=== PATIENT | female | born 1985 | race American Indian/Alaskan Native ===

== ENCOUNTER 2017-10-08 17:23 | Emergency (ER) | payer BC ==
--- NOTE | 2017-10-08 17:35 | EDM.PDOC ---
ED HPI GENERAL MEDICAL PROBLEM - General Chief Complaint: General Stated Complaint: FLU Time Seen by Provider: 10/08/17 17:35 Source of Information: Reports: Patient - History of Present Illness INITIAL COMMENTS - FREE TEXT/NARRATIVE: HISTORY AND PHYSICAL: History of present illness: [Patient presents with fever cough for 24 hours with known flu exposure No nausea vomiting chills sweats no chest pain shortness breath headache dizziness palpitation about a urine symptoms ] Review of systems: As per history of present illness and below otherwise all systems reviewed and negative. Past medical history: As per history of present illness and as reviewed below otherwise noncontributory. Surgical history: As per history of present illness and as reviewed below otherwise noncontributory. Social history: No reported history of drug or alcohol abuse. Family history: As per history of present illness and as reviewed below otherwise noncontributory. Physical exam: HEENT: Atraumatic, normocephalic, pupils reactive, negative for conjunctival pallor or scleral icterus, mucous membranes moist, throat clear, neck supple, nontender, trachea midline. Lungs: Clear to auscultation, breath sounds equal bilaterally, chest nontender. Heart: S1S2, regular, negative for clicks, rubs, or JVD. Abdomen: Soft, nondistended, nontender. Negative for masses or hepatosplenomegaly. Negative for costovertebral tenderness. Pelvis: Stable nontender. Genitourinary: Deferred. Rectal: Deferred. Extremities: Atraumatic, negative for cords or calf pain. Neurovascular unremarkable. Neuro: Awake, alert, oriented. Cranial nerves II through XII unremarkable. Cerebellum unremarkable. Motor and sensory unremarkable throughout. Exam nonfocal. Diagnostics: [Influenza] Therapeutics: [Tamiflu Phenergan with codeine ] Impression: [Influenza] Definitive disposition and diagnosis as appropriate pending reevaluation and review of above. - Related Data Allergies Allergy/AdvReac Type Severity Reaction Status Date / Time No Known Allergies Allergy Verified 10/08/17 17:42 Home Meds: Home Meds . [No Known Home Meds] 10/08/17 [History] ED ROS GENERAL - Review of Systems Review Of Systems: ROS reveals no pertinent complaints other than HPI. ED EXAM, GENERAL - Physical Exam Exam: See Below Course - Vital Signs Last Recorded V/S: Last Vital Signs Temp 97.3 F 10/08/17 17:42 Pulse 84 10/08/17 17:42 Resp 18 10/08/17 17:42 BP 109/63 10/08/17 17:42 Pulse Ox 98 10/08/17 17:42 Departure - Departure Time of Disposition: 18:37 Disposition: Home, Self-Care 01 Condition: Good Clinical Impression: Influenza - Discharge Information Referrals: PCP,None [Primary Care Provider] - Forms: ED Department Discharge Additional Instructions: The following information is given to patients seen in the emergency department who are being discharged to home. This information is to outline your options for follow-up care. We provide all patients seen in our emergency department with a follow-up referral. The need for follow-up, as well as the timing and circumstances, are variable depending upon the specifics of your emergency department visit. If you don't have a primary care physician on staff, we will provide you with a referral. We always advise you to contact your personal physician following an emergency department visit to inform them of the circumstance of the visit and for follow-up with them and/or the need for any referrals to a consulting specialist. The emergency department will also refer you to a specialist when appropriate. This referral assures that you have the opportunity for follow-up care with a specialist. All of these measure are taken in an effort to provide you with optimal care, which includes your follow-up. Under all circumstances we always encourage you to contact your private physician who remains a resource for coordinating your care. When calling for follow-up care, please make the office aware that this follow-up is from your recent emergency room visit. If for any reason you are refused follow-up, please contact the [facility] emergency department at and asked to speak to the emergency department charge nurse.
== END 2017-10-08 18:48 | disposition home or self-care (01) ==
LOC: MW.ED 17:23
DX: J11.1 Influenza due to unidentified influenza virus with other respiratory manifestations (principal)
CPT/HCPCS: 87804; 99283

== ENCOUNTER 2019-05-24 05:26 | Inpatient (IN) | payer BC ==
[2019-05-24] MEDS ORDERED: Sodium Chloride 0.9% 10 ML SDV IV PRN (05:31)
[2019-05-24] MEDS ORDERED: Sodium Chloride 0.9% 2.5 ML Syringe FLUSH PRN (05:31)
[2019-05-24] MEDS ORDERED: Citric Acid/Sodium Citrate Solution 30 ML Cup PO ONE (05:31)
[2019-05-24] MEDS ORDERED: Sodium Chloride 0.9% 10 ML Syringe FLUSH PRN (05:31)
[2019-05-24] MEDS ORDERED: ceFAZolin 2 GM in Premix Bag 1 BAG IV ONE (05:31)
[2019-05-24] MEDS: Lactated Ringers 1,000 ML IV SCH ×2 (05:45→07:23)
[2019-05-24] MEDS ORDERED: Oxytocin/0.9 % Sodium Chloride 30 UNIT/500 ML BAG IV SCH (05:45)
--- NOTE | 2019-05-24 06:52 | PCM.PREANE ---
Preanesthetic Assessment - Anesthesia/Transfusion/Family Hx Anesthesia History: Prior Anesthesia Without Reaction Family History of Anesthesia Reaction: No Transfusion History: No Prior Transfusion(s) Intubation History: Unknown - Review of Systems General: No Symptoms Pulmonary: No Symptoms Cardiovascular: No Symptoms Gastrointestinal: No Symptoms Neurological: No Symptoms Other: Reports: None - Physical Assessment Height: 5 ft 4 in Weight: 86.183 kg ASA Class: 2 Mental Status: Alert & Oriented x3 Airway Class: Mallampati = 2 Dentition: Reports: Normal Dentition Thyro-Mental Finger Breadths: 3 Mouth Opening Finger Breadths: 3 ROM/Head Extension: Full Lungs: Clear to Auscultation, Normal Respiratory Effort Cardiovascular: Regular Rate, Regular Rhythm - Lab Values: Laboratory Last Values WBC 8.91 K/uL (4.0-11.0) 05/24/19 05:44 RBC 4.04 M/uL (4.30-5.90) L 05/24/19 05:44 Hgb 12.5 g/dL (12.0-16.0) 05/24/19 05:44 Hct 36.7 % (36.0-46.0) 05/24/19 05:44 MCV 90.8 fL (80.0-98.0) 05/24/19 05:44 MCH 30.9 pg (27.0-32.0) 05/24/19 05:44 MCHC 34.1 g/dL (31.0-37.0) 05/24/19 05:44 RDW Std Deviation 44.5 fl (28.0-62.0) 05/24/19 05:44 RDW Coeff of Joss 14 % (11.0-15.0) 05/24/19 05:44 Plt Count 190 K/uL (150-400) 05/24/19 05:44 MPV 10.30 fL (7.40-12.00) 05/24/19 05:44 Nucleated RBC % 0.0 /100WBC 05/24/19 05:44 Nucleated RBCs # 0 K/uL 05/24/19 05:44 - Allergies Allergies/Adverse Reactions: Allergies Allergy/AdvReac Type Severity Reaction Status Date / Time codeine Allergy Nausea Verified 05/24/19 05:31 - Blood Blood Available: No - Anesthesia Plan Pre-Op Medication Ordered: None - Acknowledgements Anesthesia Type Planned: Spinal (general anesthesia back-up plan) Pt an Appropriate Candidate for the Planned Anesthesia: Yes Alternatives and Risks of Anesthesia Discussed w Pt/Guardian: Yes Pt/Guardian Understands and Agrees with Anesthesia Plan: Yes PreAnesthesia Questionnaire - Past Health History Medical/Surgical History: Denies Medical/Surgical History HEENT History: Reports: Other (See Below) Other HEENT History: wears glasses Cardiovascular History: Reports: None Respiratory History: Reports: None Gastrointestinal History: Reports: Other (See Below) Other Gastrointestinal History: heartburn with Genitourinary History: Reports: STD, UTI, Recurrent Other Genitourinary History: Herpes in February 2019, UTI once or twice a year. INVESTMENT OFFICER History: Reports: Musculoskeletal History: Reports: None Neurological History: Reports: None Psychiatric History: Reports: None Endocrine/Metabolic History: Reports: None Hematologic History: Reports: None Immunologic History: Reports: None Oncologic (Cancer) History: Reports: None Dermatologic History: Reports: Other (See Below) Other Dermatologic History: hx MRSA from spider bite, unsure if cleared (2005). - Infectious Disease History Infectious Disease History: Reports: Chicken Pox, Herpes, Influenza, MRSA - Past Surgical History Head Surgeries/Procedures: Reports: None HEENT Surgical History: Reports: Oral Surgery Other HEENT Surgeries/Procedures: [place] teeth Cardiovascular Surgical History: Reports: None Respiratory Surgical History: Reports: None GI Surgical History: Reports: None Female Surgical History: Reports: Section Endocrine Surgical History: Reports: None Neurological Surgical History: Reports: None Musculoskeletal Surgical History: Reports: None Oncologic Surgical History: Reports: None Dermatological Surgical History: Reports: None - SUBSTANCE USE Smoking Status *Q: Current Some Day Smoker Tobacco Use Within Last Twelve Months: Cigarettes Second Hand Smoke Exposure: Yes Recreational Drug Use History: No - HOME MEDS Home Medications: Home Meds PNV95/Ferrous Fumarate/FA [ Vitamin Tablet] 1 tab PO DAILY 05/20/19 [ History] - CURRENT (IN HOUSE) MEDS Current Meds: Current Medications Lactated Ringer's (Ringers, Lactated) 1,000 mls @ 500 mls/hr IV BOLUS RAVINDER Last Admin: 05/24/19 05:45 Dose: 500 mls/hr Oxytocin/Sodium Chloride (Oxytocin 30 Unit/500 Ml-Ns) 30 unit in 500 mls @ 250 mls/hr IV TITRATE RAVINDER Sodium Chloride (Saline Flush) 10 ml FLUSH ASDIRECTED PRN PRN Reason: Keep Vein Open Sodium Chloride (Saline Flush) 2.5 ml FLUSH ASDIRECTED PRN PRN Reason: Keep Vein Open Sodium Chloride (Normal Saline) 10 ml IV ASDIRECTED PRN PRN Reason: IV Use Discontinued Medications Citric Acid/Sodium Citrate (Bicitra Solution) 30 ml PO ONETIME ONE Stop: 05/24/19 05:32 Cefazolin Sodium/Dextrose 2 gm (/ Premix) 50 mls @ 100 mls/hr IV ONETIME ONE Stop: 05/24/19 06:00
[2019-05-24] MEDS ORDERED: Morphine PF 10 MG/10 ML SDV ONE (07:22)
[2019-05-24] MEDS ORDERED: Ondansetron 4 MG/2 ML SDV ONE (07:22)
[2019-05-24] MEDS ORDERED: Oxytocin 10 Units/1 ML SDV ONE (07:23)
[2019-05-24] MEDS ORDERED: Octyl 2-Cyanoacrylate 1 Tube ONE (07:33)
[2019-05-24] MEDS ORDERED: ceFAZolin/Dextrose,Iso-Osmotic 2 GM/50 ML Duplex Bag IV ONE (08:03)
[2019-05-24] MEDS ORDERED: Phenylephrine/Normal Saline 100 MCG/ML 10 ML Syringe ONE (08:06)
[2019-05-24] MEDS ORDERED: ePHEDrine 50 MG/ML SDV ONE (08:06)
[2019-05-24] MEDS ORDERED: Sodium Chloride 0.9% 20 ML ONE (08:07)
[2019-05-24] MEDS ORDERED: Ketorolac 30 MG/ML SDV ONE ×2 (08:30→09:02)
[2019-05-24] MEDS ORDERED: diphenhydrAMINE 50 MG/ML SDV IVPUSH PRN (09:39)
[2019-05-24] MEDS ORDERED: Ondansetron 4 MG/2 ML SDV IVPUSH PRN (09:39)
[2019-05-24] MEDS ORDERED: Acetaminophen/oxyCODONE 325-5 MG Tab PO PRN (09:39)
[2019-05-24] MEDS ORDERED: Bisacodyl 10 MG Supp RECTAL PRN (09:39)
[2019-05-24] MEDS ORDERED: Lanolin 100% Cream 7 GM Tube TOP PRN (09:39)
[2019-05-24] MEDS ORDERED: Lactated Ringers 1,000 ML IV SCH (09:45)
[2019-05-24] MEDS ORDERED: Ketorolac 30 MG/ML SDV IVPUSH SCH (09:45)
--- NOTE | 2019-05-24 09:58 | PCM.OPNOTE ---
- General Post-Op/Procedure Note Date of Surgery/Procedure: 05/24/19 Operative Procedure(s): Repeat Lower transverse Pre Op Diagnosis: 33 yo @ 39w1d for previous csection Post-Op Diagnosis: same Anesthesia Technique: Spinal Primary Surgeon: Scott Steve Fluid Replacement, Intraop: 1,800 Output, Urine Amount: 300 EBL in mLs: 500 Complications: Live female delivered at 822am , 8/9 weight 3710g Condition: Good Free Text/Narrative:: Intake & Output 05/23/19 05/24/19 05/24/19 22:59 06:59 14:59 Intake Total 1900 Balance 1900
--- NOTE | 2019-05-24 10:04 | PCM.POSTAN ---
POST ANESTHESIA ASSESSMENT - MENTAL STATUS Mental Status: Alert, Oriented - VITAL SIGNS Vital Signs: Last Vital Signs Temp 36.1 C 05/24/19 09:21 Pulse 56 L 05/24/19 09:51 Resp 12 05/24/19 09:51 BP 99/56 L 05/24/19 09:51 Pulse Ox 94 L 05/24/19 09:51 - RESPIRATORY Respiratory Status: Respiratory Rate WNL, Airway Patent, O2 Saturation Stable - CARDIOVASCULAR CV Status: Pulse Rate WNL, Blood Pressure Stable - GASTROINTESTINAL GI Status: No Symptoms - PAIN Pain Score: 0 - POST OP HYDRATION Hydration Status: Adequate & Stable - OBSERVATIONS Free Text/Narrative:: no anesthesia problems
--- NOTE | 2019-05-24 11:56 | OR ---
SURGEON: LUCILLE MOJICA DATE OF PROCEDURE: 05/24/2019 PREOPERATIVE DIAGNOSIS: A 33-year-old G4, P3-0-0-3 at 39 weeks 1 day for repeat section. POSTOPERATIVE DIAGNOSIS: A 33-year-old G4, P3-0-0-3 at 39 weeks 1 day for repeat section. PROCEDURE: Repeat lower transverse section. ESTIMATED BLOOD LOSS: 500. IV FLUIDS: 1800. URINE OUTPUT: 300. NOTES AND FINDINGS: Live female delivered at 8:22 a.m. score is 8 and 9. Weight is 3710 g. BRIEF HISTORY: She is a patient who had a history of previous and . She declined and wanted a repeat . She was given the risks, benefits, and alternatives, and desired to proceed. ANESTHESIA: Spinal. DESCRIPTION OF PROCEDURE: The patient was taken to the operating room where spinal anesthesia was performed without difficulty. She was prepared and draped in the dorsal supine position with a leftward tilt. A Pfannenstiel skin incision was made with a scalpel and carried down to the fascia with the Bovie. The fascia was incised and extended laterally. Fascia was from the rectus muscle superior and inferiorly. Rectus muscle was in the midline to the level of pubic symphysis. Robbin retractor was placed and lower uterine segment was identified. Bladder flap was created. Uterine incision was made and fetus was in cephalic position, was delivered with pressure on the fundus of the uterus without difficulty. Cord was clamped and cut. was handed over to the awaiting nursery nurses. Cord blood gases were obtained. Placenta was delivered with manual massage of the uterine fundus. The uterus was then cleaned with moist laparotomy sponges. Uterus was repaired in 2 layers, first layer with 0 Vicryl, second layer with 0 Monocryl. Robbin retractor was removed. Hemostasis was noted. Peritoneum was closed with 2-0 Vicryl. Muscle was closed with 2-0 Vicryl also. Fascia was closed with 0 Vicryl in a continuous fashion. The skin was closed with 3-0 Monocryl on a Kofi needle. All instrument and pad counts were correct x2. KATIE / RONNIE /[id number]
[2019-05-24] MEDS: Ketorolac 30 MG/ML SDV IVPUSH SCH ×2 (14:35→20:42)
--- NOTE | 2019-05-24 18:01 | PCM48HPAN ---
Post Anesthesia Note - EVALUATION WITHIN 48HRS OF ANESTHETIC Vital Signs in Normal Range: Yes Patient Participated in Evaluation: Yes Respiratory Function Stable: Yes Airway Patent: Yes Cardiovascular Function Stable: Yes Hydration Status Stable: Yes Pain Control Satisfactory: Yes Nausea and Vomiting Control Satisfactory: Yes Mental Status Recovered: Yes Vital Signs: Last Vital Signs Temp 36.6 C 05/24/19 15:45 Pulse 71 05/24/19 17:00 Resp 20 05/24/19 17:00 BP 91/52 L 05/24/19 15:45 Pulse Ox 95 05/24/19 17:00 - COMMENTS/OBSERVATIONS Free Text/Narrative:: no anesthesia problems
[2019-05-24] MEDS: Docusate Sodium 100 MG Cap PO SCH (20:42)
[2019-05-25] MEDS: Ketorolac 30 MG/ML SDV IVPUSH SCH ×2 (02:33→08:25)
[2019-05-25] MEDS: Docusate Sodium 100 MG Cap PO SCH ×2 (08:25→20:56)
--- NOTE | 2019-05-25 08:35 | PCM.PNPP ---
- General Info Date of Service: 05/25/19 Functional Status: Reports: Pain Controlled, Tolerating Diet, Ambulating - Review of Systems General: Reports: No Symptoms HEENT: Reports: No Symptoms Pulmonary: Reports: No Symptoms Cardiovascular: Reports: No Symptoms Gastrointestinal: Reports: No Symptoms Genitourinary: Reports: No Symptoms Musculoskeletal: Reports: No Symptoms Skin: Reports: No Symptoms Neurological: Reports: No Symptoms Psychiatric: Reports: No Symptoms - General Info Date of Service: 05/25/19 - Patient Data Vital Signs - Most Recent: Last Vital Signs Temp 36.3 C 05/25/19 04:00 Pulse 76 05/25/19 05:00 Resp 16 05/25/19 06:00 BP 108/56 L 05/25/19 04:00 Pulse Ox 97 05/25/19 06:00 Weight - Most Recent: 86.183 kg I&O - Last 24 Hours: Intake & Output 05/24/19 05/25/19 05/25/19 22:59 06:59 14:59 Intake Total 533 Output Total 1100 2300 Balance -567 -2300 Lab Results - Last 24 Hours: Laboratory Results - last 24 hr 05/25/19 Range/Units 06:09 Hgb 11.7 L (12.0-16.0) g/dL Hct 34.5 L (36.0-46.0) % Med Orders - Current: Current Medications Bisacodyl (Dulcolax) 10 mg RECTAL ONETIME PRN PRN Reason: Constipation Diphenhydramine HCl (Benadryl) 25 mg IVPUSH Q6H PRN PRN Reason: Itching or Nausea Docusate Sodium (Colace) 100 mg PO BID [facility] Last Admin: 05/25/19 08:25 Dose: 100 mg Emollient Ointment (Lansinoh Hpa) 0 gm TOP ASDIRECTED PRN PRN Reason: Sore Nipples Lactated Ringer's (Ringers, Lactated) 1,000 mls @ 500 mls/hr IV BOLUS [facility] Last Admin: 05/24/19 07:23 Dose: 500 mls/hr Oxytocin/Sodium Chloride (Oxytocin 30 Unit/500 Ml-Ns) 30 unit in 500 mls @ 250 mls/hr IV TITRATE RAVINDER Lactated Ringer's (Ringers, Lactated) 1,000 mls @ 125 mls/hr IV ASDIRECTED RAVINDER Last Admin: 05/24/19 11:38 Dose: 125 mls/hr Ibuprofen (Motrin) 800 mg PO Q8H PRN PRN Reason: mild pain or fever Ondansetron HCl (Zofran) 4 mg IVPUSH Q4H PRN PRN Reason: Nausea/Vomiting Oxycodone/Acetaminophen (Percocet 325-5 Mg) 1 tab PO Q4H PRN PRN Reason: Pain (moderate 4-6) Oxycodone/Acetaminophen (Percocet 325-5 Mg) 2 tab PO Q4H PRN PRN Reason: Pain (moderate 4-6) Sodium Chloride (Saline Flush) 10 ml FLUSH ASDIRECTED PRN PRN Reason: Keep Vein Open Sodium Chloride (Saline Flush) 2.5 ml FLUSH ASDIRECTED PRN PRN Reason: Keep Vein Open Sodium Chloride (Normal Saline) 10 ml IV ASDIRECTED PRN PRN Reason: IV Use Discontinued Medications Cefazolin Sodium/Dextrose (Ancef) Confirm Administered Dose 2 gm IV .STK-MED ONE Stop: 05/24/19 08:04 Citric Acid/Sodium Citrate (Bicitra Solution) 30 ml PO ONETIME ONE Stop: 05/24/19 05:32 Ephedrine Sulfate (Ephedrine Sulfate) Confirm Administered Dose 50 mg .ROUTE .STK-MED ONE Stop: 05/24/19 08:07 Cefazolin Sodium/Dextrose 2 gm (/ Premix) 50 mls @ 100 mls/hr IV ONETIME ONE Stop: 05/24/19 06:00 Sodium Chloride (Normal Saline) Confirm Administered Dose 20 mls @ as directed .ROUTE .STK-MED ONE Stop: 05/24/19 08:08 Ketorolac Tromethamine (Toradol) Confirm Administered Dose 30 mg .ROUTE .STK- MED ONE Stop: 05/24/19 08:31 Ketorolac Tromethamine (Toradol) Confirm Administered Dose 30 mg .ROUTE .STK- MED ONE Stop: 05/24/19 09:03 Ketorolac Tromethamine (Toradol) 30 mg IVPUSH Q6H [facility] Stop: 05/25/19 09:46 Ketorolac Tromethamine (Toradol) 30 mg IVPUSH Q6H [facility] Stop: 05/25/19 08:31 Last Admin: 05/25/19 08:25 Dose: 30 mg Morphine Sulfate (Duramorph Pf) Confirm Administered Dose 10 mg .ROUTE .STK-MED ONE Stop: 05/24/19 07:23 Octyl Cyanoacrylate (Dermabond Advance) Confirm Administered Dose 1 applic .ROUTE .STK-MED ONE Stop: 05/24/19 07:34 Ondansetron HCl (Zofran) Confirm Administered Dose 4 mg .ROUTE .STK-MED ONE Stop: 05/24/19 07:23 Oxytocin (Pitocin) Confirm Administered Dose 20 unit .ROUTE .STK-MED ONE Stop: 05/24/19 07:24 Phenylephrine HCl (Phenylephrine In Ns 100 Mcg/Ml) Confirm Administered Dose 1 mg .ROUTE .STK-MED ONE Stop: 05/24/19 08:07 - Infant Interaction Disposition, : [place] in Room with Family Interaction: Holding Infant Infant Feeding: Attempted ; Nursed Fair/Poor Support Person: - Recovery Exam Fundal Tone: Firm Fundal Level: 1 Fingerbreadths Below Umbilicus Fundal Placement: Midline Lochia Amount: Scant Lochia Color: Rubra/Red Perineum Description: Intact, Minimal Bruising/Swelling Episiotomy/Laceration: None Bladder Status: Indwelling Catheter in Place Urinary Elimination: Indwelling Catheter - Exam General: Alert, Oriented HEENT: Pupils Equal Neck: Supple Lungs: Clear to Auscultation, Normal Respiratory Effort Cardiovascular: Regular Rate, Regular Rhythm GI/Abdominal Exam: Normal Bowel Sounds, Soft, Non-Tender, No Distention, No Abnormal Bruit Extremities: Normal Inspection, No Pedal Edema, Normal Capillary Refill Skin: Warm, Dry, Intact Wound/Incisions: Dressing Dry and Intact Neurological: No New Focal Deficit Psy/Mental Status: Alert, Normal Affect, Normal Mood - Problem List & Annotations (1) delivery delivered SNOMED Code(s): 250780224 Code(s): O82 - ENCOUNTER FOR DELIVERY WITHOUT INDICATION Status: Acute Current Visit: Yes - Problem List Review Problem List Initiated/Reviewed/Updated: Yes - Assessment Assessment:: POD#1 after repeat low transverse , stable, minimal lochia, pain well controlled. - Plan Plan:: Continue postop care, may remove dressing and shower today, encourage ambulation and anticipate discharge tomorrow.
[2019-05-25] MEDS: Acetaminophen/oxyCODONE 325-5 MG Tab PO PRN ×2 (13:27→18:34)
[2019-05-25] MEDS: Ibuprofen 800 MG Tab PO PRN (16:06)
[2019-05-26] MEDS: Acetaminophen/oxyCODONE 325-5 MG Tab PO PRN ×2 (00:10→07:40)
[2019-05-26] MEDS: Ibuprofen 800 MG Tab PO PRN (07:41)
[2019-05-26] MEDS: Docusate Sodium 100 MG Cap PO SCH (08:48)
--- NOTE | 2019-05-26 09:50 | PCM.PNPP ---
- General Info Date of Service: 05/26/19 Functional Status: Reports: Pain Controlled, Tolerating Diet, Ambulating, Urinating - Review of Systems General: Reports: No Symptoms HEENT: Reports: No Symptoms Pulmonary: Reports: No Symptoms Cardiovascular: Reports: No Symptoms Gastrointestinal: Reports: No Symptoms Genitourinary: Reports: No Symptoms Musculoskeletal: Reports: No Symptoms Skin: Reports: No Symptoms Neurological: Reports: No Symptoms Psychiatric: Reports: No Symptoms - Patient Data Vital Signs - Most Recent: Last Vital Signs Temp 37.1 C 05/26/19 07:52 Pulse 64 05/26/19 07:52 Resp 18 05/26/19 07:52 BP 108/60 05/26/19 07:52 Pulse Ox 96 05/26/19 07:52 Weight - Most Recent: 86.183 kg Med Orders - Current: Current Medications Bisacodyl (Dulcolax) 10 mg RECTAL ONETIME PRN PRN Reason: Constipation Diphenhydramine HCl (Benadryl) 25 mg IVPUSH Q6H PRN PRN Reason: Itching or Nausea Docusate Sodium (Colace) 100 mg PO BID [facility] Last Admin: 05/26/19 08:48 Dose: 100 mg Emollient Ointment (Lansinoh Hpa) 0 gm TOP ASDIRECTED PRN PRN Reason: Sore Nipples Lactated Ringer's (Ringers, Lactated) 1,000 mls @ 500 mls/hr IV BOLUS [facility] Last Admin: 05/24/19 07:23 Dose: 500 mls/hr Oxytocin/Sodium Chloride (Oxytocin 30 Unit/500 Ml-Ns) 30 unit in 500 mls @ 250 mls/hr IV TITRATE [facility] Lactated Ringer's (Ringers, Lactated) 1,000 mls @ 125 mls/hr IV ASDIRECTED [facility] Last Admin: 05/24/19 11:38 Dose: 125 mls/hr Ibuprofen (Motrin) 800 mg PO Q8H PRN PRN Reason: mild pain or fever Last Admin: 05/26/19 07:41 Dose: 800 mg Ondansetron HCl (Zofran) 4 mg IVPUSH Q4H PRN PRN Reason: Nausea/Vomiting Oxycodone/Acetaminophen (Percocet 325-5 Mg) 1 tab PO Q4H PRN PRN Reason: Pain (moderate 4-6) Last Admin: 05/26/19 07:40 Dose: 1 tab Oxycodone/Acetaminophen (Percocet 325-5 Mg) 2 tab PO Q4H PRN PRN Reason: Pain (moderate 4-6) Sodium Chloride (Saline Flush) 10 ml FLUSH ASDIRECTED PRN PRN Reason: Keep Vein Open Sodium Chloride (Saline Flush) 2.5 ml FLUSH ASDIRECTED PRN PRN Reason: Keep Vein Open Sodium Chloride (Normal Saline) 10 ml IV ASDIRECTED PRN PRN Reason: IV Use Discontinued Medications Cefazolin Sodium/Dextrose (Ancef) Confirm Administered Dose 2 gm IV .STK-MED ONE Stop: 05/24/19 08:04 Citric Acid/Sodium Citrate (Bicitra Solution) 30 ml PO ONETIME ONE Stop: 05/24/19 05:32 Ephedrine Sulfate (Ephedrine Sulfate) Confirm Administered Dose 50 mg .ROUTE .STK-MED ONE Stop: 05/24/19 08:07 Cefazolin Sodium/Dextrose 2 gm (/ Premix) 50 mls @ 100 mls/hr IV ONETIME ONE Stop: 05/24/19 06:00 Sodium Chloride (Normal Saline) Confirm Administered Dose 20 mls @ as directed .ROUTE .STK-MED ONE Stop: 05/24/19 08:08 Ketorolac Tromethamine (Toradol) Confirm Administered Dose 30 mg .ROUTE .STK- MED ONE Stop: 05/24/19 08:31 Ketorolac Tromethamine (Toradol) Confirm Administered Dose 30 mg .ROUTE .STK- MED ONE Stop: 05/24/19 09:03 Ketorolac Tromethamine (Toradol) 30 mg IVPUSH Q6H [facility] Stop: 05/25/19 09:46 Ketorolac Tromethamine (Toradol) 30 mg IVPUSH Q6H [facility] Stop: 05/25/19 08:31 Last Admin: 05/25/19 08:25 Dose: 30 mg Morphine Sulfate (Duramorph Pf) Confirm Administered Dose 10 mg .ROUTE .STK-MED ONE Stop: 05/24/19 07:23 Octyl Cyanoacrylate (Dermabond Advance) Confirm Administered Dose 1 applic .ROUTE .STK-MED ONE Stop: 05/24/19 07:34 Ondansetron HCl (Zofran) Confirm Administered Dose 4 mg .ROUTE .STK-MED ONE Stop: 05/24/19 07:23 Oxytocin (Pitocin) Confirm Administered Dose 20 unit .ROUTE .STK-MED ONE Stop: 05/24/19 07:24 Phenylephrine HCl (Phenylephrine In Ns 100 Mcg/Ml) Confirm Administered Dose 1 mg .ROUTE .STK-MED ONE Stop: 05/24/19 08:07 - Interaction Infant Disposition, : in Room with Family Infant Interaction: Holding Infant Infant Feeding: Attempted ; Nursed Fair/Poor Support Person: - Recovery Exam Fundal Tone: Firm Fundal Level: 1 Fingerbreadths Below Umbilicus Fundal Placement: Midline Lochia Amount: Scant Lochia Color: Rubra/Red Perineum Description: Intact, Minimal Bruising/Swelling Episiotomy/Laceration: Approximated Bladder Status: Indwelling Catheter in Place Urinary Elimination: Indwelling Catheter - Exam General: Alert, Oriented HEENT: Pupils Equal Neck: Supple Lungs: Clear to Auscultation, Normal Respiratory Effort Cardiovascular: Regular Rate, Regular Rhythm GI/Abdominal Exam: Normal Bowel Sounds, Soft, Non-Tender, No Distention, No Mass Extremities: Non-Tender, No Pedal Edema Skin: Warm, Dry, Intact Wound/Incisions: Healing Well Neurological: No New Focal Deficit - Problem List & Annotations (1) delivery delivered SNOMED Code(s): 269203488 Code(s): O82 - ENCOUNTER FOR DELIVERY WITHOUT INDICATION Status: Acute Current Visit: Yes - Problem List Review Problem List Initiated/Reviewed/Updated: Yes - Assessment Assessment:: POD#3 after repeat low transverse , stable, minimal lochia, pain well controlled. Would like to be discharged today. - Plan Plan:: Dismiss to home, discharge instructions reviewed.
== END 2019-05-26 11:54 | disposition home or self-care (01) | DRG 540 ==
LOC: MW.OB 05:26
PROVIDERS: ADMIT Obstetrics & Gynecology; ATTEND Obstetrics & Gynecology
PROC: 10D00Z1 Extraction of Products of Conception, Low, Open Approach (ICD-10-PCS; principal; 2019-05-24)
DX: O34.211 Maternal care for low transverse scar from previous cesarean delivery (principal); O99.334 Smoking (tobacco) complicating childbirth; F17.210 Nicotine dependence, cigarettes, uncomplicated; Z3A.39 39 weeks gestation of pregnancy; Z37.0 Single live birth
CPT/HCPCS: 36415; 59025; 85014; 85018; 85027; 86850; 86900; 86901; A9270-GY; J0690; J1885; J2270; J2370; J2405; J2590; J7120

== ENCOUNTER 2021-09-12 13:31 | Emergency (ER) | payer BC ==
--- NOTE | 2021-09-12 13:55 | EDM.PDOC ---
ED HPI GENERAL MEDICAL PROBLEM - General Chief Complaint: Lower Extremity Injury/Pain Stated Complaint: WEAKNESS IN LEGS/BLUE LIKE COLOR Time Seen by Provider: 09/12/21 13:41 - History of Present Illness INITIAL COMMENTS - FREE TEXT/NARRATIVE: 36-year-old female presenting with bluish discoloration to the bilateral thighs. Patient has no medical problems. She noticed this morning in the shower that her upper legs seem to be dusky or blue in color. She had a similar episode last month during her menses and she is currently on her menses. Her menses are otherwise normal for her. No numbness or tingling but reports weakness in the legs no urinary or bowel incontinence. No prior history of similar episodes beyond 1 month. Last month's episode resolved on its own. No clear exacerbating or alleviating factors no radiation no other associated symptoms. ROS: General: No fever. Skin: Per HPI Eyes: No vision problems. ENT: No sore throat. Neck: No neck stiffness. Respiratory: No shortness of breath. Cardiac: No chest pain. Gastrointestinal: No nausea, vomiting or abdominal pain. Musculoskeletal: Per HPI Neurologic: No headache. back pain Pain Score (Numeric/FACES): 5 - Related Data Allergies Allergy/AdvReac Type Severity Reaction Status Date / Time codeine Allergy Nausea Verified 09/12/21 13:36 Home Meds: Home Meds . [No Known Home Meds] 09/12/21 [History] Past Medical History - Past Health History Medical/Surgical History: Denies Medical/Surgical History HEENT History: Reports: Impaired Vision Other HEENT History: wears glasses Cardiovascular History: Reports: None Respiratory History: Reports: None Gastrointestinal History: Reports: GERD, Other (See Below) Other Gastrointestinal History: heartburn with Genitourinary History: Reports: STD, UTI, Recurrent Other Genitourinary History: Herpes in February 2019, UTI once or twice a year. 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 - Infectious Disease History Infectious Disease History: Reports: Chicken Pox, Herpes, Influenza, MRSA - Past Surgical History Head Surgeries/Procedures: Reports: None HEENT Surgical History: Reports: Oral Surgery Other HEENT Surgeries/Procedures: [place] teeth Cardiovascular Surgical History: Reports: None Respiratory Surgical History: Reports: None GI Surgical History: Reports: None Female Surgical History: Reports: Section Endocrine Surgical History: Reports: None Neurological Surgical History: Reports: None Musculoskeletal Surgical History: Reports: None Oncologic Surgical History: Reports: None Dermatological Surgical History: Reports: None Social & Family History - Family History Family Medical History: No Pertinent Family History HEENT: Reports: Macular Degeneration, Retinal Detachment Other HEENT Family History: Mother of patient had macular degeneration and retinal detachment. OBGYN: Reports: Neurological: Reports: Alzheimers Disease Other Neurological Family History: Grandmother of patient has alzheimers. - Tobacco Use Tobacco Use Status *Q: Current Every Day Tobacco User Years of Tobacco use: 20 Packs/Tins Daily: 0.5 - Caffeine Use Caffeine Use: Reports: Coffee - Recreational Drug Use Recreational Drug Use: Yes Drug Use in Last 12 Months: Yes Recreational Drug Type: Reports: Marijuana/Hashish Recreational Drug Use Frequency: Daily Review of Systems - Review of Systems Review Of Systems: See Below ED EXAM, GENERAL - Physical Exam Exam: See Below Free Text/Narrative:: General Appearance: No acute distress, appears comfortable Skin: Patient's upper legs are somewhat dusky in appearance from the bikini line distally to just proximal to the knee abnormalities faint and circumferential. The asher and calves are normal in appearance and warmth HEENT: Normocephalic/atraumatic, sclera anicteric, mucous membranes moist Neck: Normal range of motion Chest and Lungs: Normal work of breathing Musculoskeletal: 2+ DP and PT pulses sensation is fully intact to the bilateral feet strength is intact in the bilateral ankles, knees and hips Neurologic: Awake, alert, no obvious deficits, moving all extremities Psychiatric: Appropriate, cooperative Course - Vital Signs Last Recorded V/S: Last Vital Signs Temp 96.9 F 09/12/21 13:37 Pulse 65 09/12/21 14:05 Resp 18 09/12/21 14:05 BP 141/93 H 09/12/21 13:37 Pulse Ox 99 09/12/21 14:05 Departure - Departure Time of Disposition: 13:53 Disposition: Home, Self-Care 01 Condition: Good Clinical Impression: Discoloration of skin of multiple sites of lower extremity - Discharge Information *PRESCRIPTION DRUG MONITORING PROGRAM REVIEWED*: Not Applicable *COPY OF PRESCRIPTION DRUG MONITORING REPORT IN PATIENT CIRO: Not Applicable Referrals: Kevin Peng [Primary Care Provider] - Forms: ED Department Discharge Additional Instructions: Your presentation does not indicate any type of severe infection. The blood flow through your legs into your feet is good and your nerve and muscle function is normal. Your thighs are slightly cooler than the rest of your legs and it appears that less of the blood is making its way all the way to the surface. Since this is happened associated with it. For the last 2 months I do think is most likely related to hormonal changes that are associated with this. If you develop severe pain numbness or swelling of your lower extremities please return to the ER. Otherwise keep an eye on the color and see if it fades away as you are menstrual period ends. If it does not please follow-up with your primary care doctor. The following information is given to patients seen in the emergency department who are being discharged to home. This information is to outline your options for follow-up care. We provide all patients seen in our emergency department with a follow-up referral. The need for follow-up, as well as the timing and circumstances, are variable depending upon the specifics of your emergency department visit. If you don't have a primary care physician on staff, we will provide you with a referral. We always advise you to contact your personal physician following an emergency department visit to inform them of the circumstance of the visit and for follow-up with them and/or the need for any referrals to a consulting specialist. The emergency department will also refer you to a specialist when appropriate. This referral assures that you have the opportunity for follow-up care with a specialist. All of these measure are taken in an effort to provide you with optimal care, which includes your follow-up. Under all circumstances we always encourage you to contact your private physician who remains a resource for coordinating your care. When calling for follow-up care, please make the office aware that this follow-up is from your recent emergency room visit. If for any reason you are refused follow-up, please contact the [facility] Emergency Department at and asked to speak to the emergency department charge nurse. Sepsis Event Note (ED) - Evaluation Sepsis Screening Result: No Definite Risk - Focused Exam Vital Signs: Vital Signs Temp Pulse Resp BP Pulse Ox 09/12/21 14:05 65 18 99 09/12/21 13:37 96.9 F 95 20 141/93 H 98 - Assessment/Plan Assessment:: 36-year-old female presenting with bilateral thigh discoloration. There is a faint discoloration that is objectively present there is a minimal temperature difference as well. However the legs distally show normal blood flow with excellent pulses and acute vascular compromise is not consistent with this presentation. There is no significant pain with this no numbness or tingling on exam her neurologic function is normal. Patient had a similar episode with her menses 1 month ago as possible that is the cause of her presentation today. However the exact etiology is unclear. That said it is not consistent with an acute infective process there is no sign of deep space infection there are no findings that suggest vascular or neurologic compromise at this time. Nothing suggest cord compression or cauda equina. Patient is stable for outpatient follow-up with PCP. Return precautions discussed and understood.
== END 2021-09-12 14:07 | disposition home or self-care (01) ==
LOC: MW.ED 13:31
DX: L98.8 Other specified disorders of the skin and subcutaneous tissue (principal); Z88.5 Allergy status to narcotic agent; Z72.0 Tobacco use
CPT/HCPCS: 99283

== ENCOUNTER 2023-08-25 20:22 | Emergency (ER) | payer SELFPAY ==
[2023-08-25] MEDS ORDERED: Sodium Chloride 0.9% 2.5 ML Syringe FLUSH PRN (20:32)
[2023-08-25] MEDS ORDERED: Sodium Chloride 0.9% 10 ML Syringe FLUSH PRN (20:32)
[2023-08-25 20:41] LABS: BASOPHILS ABSOLUTE AUTO 0.07 K/uL (0.00-0.20); BASOPHILS PERCENT AUTO 0.8 % (0.0-1.0); EOSINOPHILS PERCENT AUTO 1.2 % (0.0-6.0); HEMATOCRIT 33.2 % (37.0-47.0); HEMOGLOBIN 10.5 g/dL (12.0-16.0); IMMATURE GRAN ABSOLUTE AUTO 0.02 K/uL (0.00-0.05); IMMATURE GRAN PERCENT AUTO 0.2 % (0.0-0.4); LYMPHOCYTES ABSOLUTE AUTO 2.43 K/uL (1.00-4.80); LYMPHOCYTES PERCENT AUTO 28.5 % (24.0-44.0); MEAN CORPUSCULAR HEMOGLOBIN 22.8 pg (28.0-32.0); MEAN CORPUSCULAR HGB CONC 31.6 g/dL (32.0-36.0); MEAN CORPUSCULAR VOLUME 72.2 fL (83.0-99.0); MEAN PLATELET VOLUME 9.7 fL (9.4-12.3); MONOCYTES ABSOLUTE AUTO 0.65 K/uL (0.00-0.80); MONOCYTES PERCENT AUTO 7.6 % (0.0-8.0); NEUTROPHILS ABSOLUTE AUTO 5.27 K/uL (1.80-7.70); NEUTROPHILS PERCENT AUTO 61.7 % (41.0-71.0); PLATELET COUNT,PLT 350 K/uL (150-400); WHITE BLOOD CELL COUNT,WBC 8.54 K/uL (3.9-11.3)
[2023-08-25 21:09] LABS: A/G RATIO 1.1 (0.9-1.6); ALANINE AMINOTRANSFERASE,ALT 30 IU/L (14-63); ALBUMIN 4.2 g/dL (3.4-5.0); ALKALINE PHOSPHATASE 96 U/L (46-116); ASPARTATE AMNIOTRANSFERASE,AST 20 IU/L (15-37); BILIRUBIN TOTAL 0.4 mg/dL (0.2-1.0); BLOOD UREA NITROGEN,BUN 10 mg/dL (7.0-18.0); CALCIUM 9.6 mg/dL (8.5-10.1); CARBON DIOXIDE,CO2 23.8 mmol/L (21.0-32.0); CHLORIDE,CL 102 mmol/L (98-107); CREATININE 0.9 mg/dL (0.6-1.0); EST CRCL DRUG DOSING (CG) 73.19 mL/min; GLUCOSE RANDOM 104 mg/dL (74-106); POTASSIUM,K 3.7 mmol/L (3.5-5.1); PROTEIN TOTAL,TP 8.1 g/dL (6.4-8.2); SODIUM,NA 136 mmol/L (136-145)
[2023-08-25 21:10] LABS: ESTIMATED GFR 84 mL/min (>60)
== END 2023-08-25 22:45 | disposition home or self-care (01) ==
LOC: MW.ED 20:22
DX: R07.89 Other chest pain (principal); Z88.5 Allergy status to narcotic agent
CPT/HCPCS: 36415; 71046; 80053; 84484; 85025; 85379; 93005; 99285; J3490; 93010; 99282

== ENCOUNTER 2024-07-16 10:43 | Day surgery (SDC) | payer BC, OTHER ==
[~2024-07-16 10:43] MED LIST: Sodium Chloride 0.9% 10 ML Syringe FLUSH PRN; Sodium Chloride 0.9% 2.5 ML Syringe FLUSH PRN; Sodium Chloride 0.9% 20 ML SDV IV PRN
[2024-07-16] MEDS: Lactated Ringers 1,000 ML IV SCH (11:15)
[2024-07-16] MEDS ORDERED: Propofol 200 MG/20 ML SDV ONE ×2 (12:30→12:43)
== END 2024-07-16 13:35 | disposition home or self-care (01) ==
LOC: MW.SDS 10:43
PROVIDERS: ATTEND Surgery
DX: D64.9 Anemia, unspecified (principal); F17.210 Nicotine dependence, cigarettes, uncomplicated
CPT/HCPCS: 43239; 45378; 81025; J2704; J7120; 00813